=== PATIENT | female | born 1985 | race African-American/Black ===

== ENCOUNTER 2017-12-30 00:42 | Inpatient (IN) ==
[2017-12-30] MEDS ORDERED: PANTOPRAZOLE 40 MG VIAL IV STA (01:17)
[2017-12-30] MEDS ORDERED: SODIUM CHLORIDE 0.9% 1,000 ML IV STA (01:17)
[2017-12-30] MEDS ORDERED: ONDANSETRON 4 MG/2 ML VIAL IV STA ×2 (01:17→03:00)
[2017-12-30] MEDS ORDERED: DICYCLOMINE 20 MG/2 ML AMP IM ONE (01:17)
[2017-12-30] MEDS ORDERED: ONDANSETRON 4 MG/2 ML VIAL ONE ×3 (01:26→14:03)
[2017-12-30] MEDS ORDERED: PANTOPRAZOLE 40 MG VIAL IV ONE (01:26)
[2017-12-30 02:00] LABS: Basophils % 0.2 % (0.0-0.8); Eosinophils # 0.3 10*3/uL (0.0-0.87); Eosinophils % 1.6 % (0.00-10.9); Hematocrit 36.3 VOL% (35.7-47.0); Hemoglobin 11.7 GM/DL (12.0-16.0); Immature Granulocytes % 0.5 %; Immature Granulocytes Absolute 0.08 #; Lymphocytes % 12.3 % (21.3-54.2); Mean Corpuscular HGB Conc 32.2 GM/DL (32-36); Mean Corpuscular Hemoglobin 29 PG (27-34); Mean Corpuscular Volume 90.5 FL (87-102); Mean Platelet Volume 10.9 FL (9.6-12.0); Monocytes # 0.5 10*3/uL (0.11-0.8); Monocytes % 3.3 % (1.7-12.7); Neutrophils # 13.6 10*3/uL (1.4-7.4); Neutrophils % 82.1 % (38.7-73.9); Platelet Count 233 T/CUMM (130-400); Red Blood Count 4.01 MC/CUMM (3.8-5.5); Red Cell Distribution Width 13.5 % (9.3-17.3); White Blood Count 16.5 T/CUMM (4-12)
[2017-12-30 02:10] LABS: Apearance,Urine CLOUDY (Clear); Bacteria,Urine Moderate /HPF (Few); Bilirubin,Urine Negative (Negative); Blood, Urine Negative (Negative); Glucose,Urine (UA) Negative (Negative); Ketones,Urine 5 mg/dL (Negative); Mucus,Urine Few /LPF (Occasional); Nitrite,Urine Negative (Negative); PT Patient Result 10.2 SECS; Partial Thromboplastin Time 24.8 SECS (0-40); Protein,Urine 100 MG/DL; RBC,Urine 17 /HPF (0-4); Squamous Epithelial Cell,Urine Occasional /HPF (0-10); Urine Color Yellow (Yellow); Urine Urobilinogen < 2.0 EU/DL (0.2-1.0); WBC,Urine 135 /HPF (0-6)
[2017-12-30] MEDS ORDERED: cefTRIAXone 1,000 MG in SODIUM CHLORIDE 0.9% 100 ML IV STA (02:18)
[2017-12-30 02:20] LABS: Alanine Aminotransferase 20 U/L (13-56); Albumin 3.6 G/DL (3.4-5.0); Alkaline Phosphatase 54 U/L (45-117); Amylase 83 U/L (25-115); Aspartate Amino Transferase 16 U/L (0-37); Bilirubin,Total < 0.39 MG/DL (0.2-1.0); Blood Urea Nitrogen 10 MG/DL (7-18); Calcium 8.9 MG/DL (8.5-10.1); Glucose 85 MG/DL (74-106); Osmolality,Calculated 272.7 MOS/KG (273-304); Potassium 3.5 MMOL/L (3.5-5.1); Sodium 138 MMOL/L (136-145); Total Protein 8.2 G/DL (6.4-8.3)
[2017-12-30] MEDS ORDERED: cefTRIAXone 1,000 MG VIAL ONE (02:39)
[2017-12-30] MEDS ORDERED: MEPERIDINE 25 MG/1 ML VIAL ONE ×2 (02:58→14:03)
[2017-12-30] MEDS ORDERED: MEPERIDINE 25 MG/1 ML VIAL IV STA (03:00)
[2017-12-30] MEDS ORDERED: ACETAMINOPHEN 325 MG TABLET PO PRN (04:18)
[2017-12-30] MEDS: LACTATED RINGERS 1,000 ML IV SCH ×2 (05:21→18:10)
[2017-12-30] MEDS: ceFAZolin 2,000 MG in PREMIX 1 EACH IV SCH ×2 (06:25→12:15)
[2017-12-30] MEDS ORDERED: cefOXitin 2,000 MG in SYRINGE 1 EACH IV ONE (08:42)
[2017-12-30] MEDS: MEPERIDINE 50 MG/1 ML VIAL IV SCH ×3 (11:23→17:41)
[2017-12-30] MEDS: ONDANSETRON 4 MG/2 ML VIAL IV PRN ×2 (11:28→17:36)
[2017-12-30] MEDS: MULTIVITAMIN (PRENATAL) TABLET PO SCH (11:47)
[2017-12-30] MEDS: FOLIC ACID 1 MG TABLET PO SCH (11:47)
[2017-12-30] MEDS ORDERED: LIDOCAINE 2%/EPI 20 ML VIAL ONE (12:31)
[2017-12-30] MEDS ORDERED: TISSUE ADHESIVE 1 EACH APPLICATOR TOP ONE (13:18)
[2017-12-30] MEDS ORDERED: PROPOFOL 200 MG/20 ML VIAL IV ONE (13:59)
[2017-12-30] MEDS ORDERED: SEVOFLURANE 1 UNIT/15 MINUTE INH ONE (13:59)
[2017-12-30] MEDS ORDERED: fentaNYL 100 MCG/2 ML VIAL ONE (14:00)
[2017-12-30] MEDS ORDERED: ROCURONIUM 100 MG/10 ML VIAL IV ONE (14:00)
[2017-12-30] MEDS ORDERED: MEPERIDINE 25 MG/1 ML VIAL IV PRN (14:09)
[2017-12-30] MEDS ORDERED: ONDANSETRON 4 MG/2 ML VIAL IV PRN (14:09)
[2017-12-30] MEDS: SIMETHICONE CHEW 80 MG TABLET PO PRN ×2 (15:29→21:11)
[2017-12-31] MEDS: LACTATED RINGERS 1,000 ML IV SCH (02:02)
[2017-12-31] MEDS: MEPERIDINE 50 MG/1 ML VIAL IV SCH ×2 (02:33→06:44)
[2017-12-31] MEDS: SIMETHICONE CHEW 80 MG TABLET PO PRN ×2 (03:52→19:41)
[2017-12-31 06:36] LABS: Basophils % 0.2 % (0.0-0.8); Eosinophils # 0.1 10*3/uL (0.0-0.87); Hematocrit 27.8 VOL% (35.7-47.0); Immature Granulocytes % 0.4 %; Immature Granulocytes Absolute 0.02 #; Lymphocytes # 1.3 10*3/uL (1.4-4.0); Lymphocytes % 24.6 % (21.3-54.2); Mean Corpuscular HGB Conc 32.4 GM/DL (32-36); Mean Corpuscular Hemoglobin 29 PG (27-34); Mean Corpuscular Volume 90.3 FL (87-102); Mean Platelet Volume 11.1 FL (9.6-12.0); Monocytes # 0.5 10*3/uL (0.11-0.8); Monocytes % 8.8 % (1.7-12.7); Neutrophils # 3.4 10*3/uL (1.4-7.4); Platelet Count 174 T/CUMM (130-400); Red Blood Count 3.08 MC/CUMM (3.8-5.5); Red Cell Distribution Width 13.2 % (9.3-17.3); White Blood Count 5.2 T/CUMM (4-12)
[2017-12-31 07:08] LABS: Alanine Aminotransferase 25 U/L (13-56); Albumin 2.5 G/DL (3.4-5.0); Alkaline Phosphatase 40 U/L (45-117); Aspartate Amino Transferase 25 U/L (0-37); Bilirubin,Total < 0.39 MG/DL (0.2-1.0); Blood Urea Nitrogen 4 MG/DL (7-18); Calcium 7.9 MG/DL (8.5-10.1); Glucose 77 MG/DL (74-106); Osmolality,Calculated 270.7 MOS/KG (273-304); Potassium 3.2 MMOL/L (3.5-5.1); Sodium 138 MMOL/L (136-145); Total Protein 5.7 G/DL (6.4-8.3)
[2017-12-31] MEDS: MULTIVITAMIN (PRENATAL) TABLET PO SCH (09:26)
[2017-12-31] MEDS: FOLIC ACID 1 MG TABLET PO SCH (09:26)
[2017-12-31] MEDS: MAGNESIUM HYDROXIDE SUSP 30 ML UDCUP PO PRN ×2 (10:13→20:58)
[2017-12-31 12:16] LABS: Hematocrit 27.7 VOL% (35.7-47.0); Hemoglobin 9.1 GM/DL (12.0-16.0)
[2017-12-31] MEDS: POTASSIUM CHLORIDE INJ 20 MEQ in LACTATED RINGERS 1,000 ML IV SCH ×2 (13:01→21:01)
[2017-12-31] MEDS ORDERED: MEPERIDINE 50 MG/1 ML VIAL IV PRN (18:59)
[2017-12-31] MEDS: POTASSIUM CHLORIDE 20 MEQ TABLET PO SCH (20:58)
[2017-12-31] MEDS ORDERED: BISACODYL 10 MG SUPP RECTAL PRN (21:52)
[2018-01-01] MEDS: SIMETHICONE CHEW 80 MG TABLET PO PRN (04:02)
[2018-01-01] MEDS: POTASSIUM CHLORIDE INJ 20 MEQ in LACTATED RINGERS 1,000 ML IV SCH (05:00)
[2018-01-01] MEDS: POTASSIUM CHLORIDE 20 MEQ TABLET PO SCH (07:50)
[2018-01-01 07:56] VITALS: BP 109/63
[2018-01-01] MEDS: FOLIC ACID 1 MG TABLET PO SCH (08:24)
[2018-01-01] MEDS: MULTIVITAMIN (PRENATAL) TABLET PO SCH (08:25)
[2018-01-01] MEDS ORDERED: INFLUENZA VIRUS VACCINE 0.5 ML SYRINGE IM ONE (11:36)
== END 2018-01-01 11:35 | disposition home or self-care (01) | DRG 951 ==
LOC: N.ED 00:42 → N.EDINP 03:15 → N.OB 03:55
PROVIDERS: ADMIT Obstetrics & Gynecology; ATTEND Obstetrics & Gynecology
PROC: LAPCHOL (2017-12-30 12:15)

== ENCOUNTER 2018-05-12 01:34 | Inpatient (IN) ==
[2018-05-12] MEDS ORDERED: CITRIC ACID/SODIUM CITRATE 30 ML UDCUP PO PRN (02:20)
[2018-05-12] MEDS ORDERED: FAMOTIDINE 20 MG/2 ML VIAL IV PRN (02:20)
[2018-05-12] MEDS ORDERED: ONDANSETRON 4 MG/2 ML VIAL IV PRN ×2 (02:24→09:51)
[2018-05-12] MEDS ORDERED: BUTORPHANOL 2 MG/ML VIAL IV PRN (02:24)
[2018-05-12] MEDS ORDERED: AMPICILLIN INJ 2,000 MG in SODIUM CHLORIDE 0.9% 100 ML IV ONE (02:24)
[2018-05-12] MEDS ORDERED: OXYTOCIN/LR 30 UNIT/1,000 ML BAG IV PRN (02:24)
[2018-05-12] MEDS ORDERED: BETAMETH SODIUM PHOS/ACETATE 30 MG/5 ML VIAL IM SCH (02:30)
[2018-05-12] MEDS ORDERED: AMPICILLIN 2,000 MG VIAL ONE (02:36)
[2018-05-12] MEDS ORDERED: SODIUM CHLORIDE 0.9% 100 ML IV ONE (02:37)
[2018-05-12] MEDS: TERBUTALINE 1 MG/1 ML VIAL SUBCUT PRN ×2 (02:46→05:05)
[2018-05-12] MEDS: LACTATED RINGERS 1,000 ML IV SCH ×3 (02:50→18:51)
[2018-05-12 02:51] LABS: Basophils % 0.2 % (0.0-0.8); Eosinophils # 0.1 10*3/uL (0.0-0.87); Eosinophils % 1.1 % (0.00-10.9); Hematocrit 24.2 VOL% (35.7-47.0); Hemoglobin 7.6 GM/DL (12.0-16.0); Immature Granulocytes Absolute 0.09 #; Lymphocytes # 2.5 10*3/uL (1.4-4.0); Lymphocytes % 27.5 % (21.3-54.2); Mean Corpuscular HGB Conc 31.4 GM/DL (32-36); Mean Corpuscular Hemoglobin 29 PG (27-34); Mean Platelet Volume 12.7 FL (9.6-12.0); Monocytes # 0.7 10*3/uL (0.11-0.8); Monocytes % 7.5 % (1.7-12.7); Neutrophils # 5.6 10*3/uL (1.4-7.4); Neutrophils % 62.7 % (38.7-73.9); Platelet Count 127 T/CUMM (130-400); Red Blood Count 2.66 MC/CUMM (3.8-5.5)
[2018-05-12 03:06] LABS: Alanine Aminotransferase 10 U/L (13-56); Albumin 2.3 G/DL (3.4-5.0); Alkaline Phosphatase 130 U/L (45-117); Aspartate Amino Transferase 16 U/L (0-37); Bilirubin,Total < 0.39 MG/DL (0.2-1.0); Blood Urea Nitrogen 7 MG/DL (7-18); Calcium 8.6 MG/DL (8.5-10.1); Glucose 80 MG/DL (74-106); Osmolality,Calculated 277.3 MOS/KG (273-304); Potassium 3.8 MMOL/L (3.5-5.1); Sodium 141 MMOL/L (136-145); Total Protein 7.1 G/DL (6.4-8.3)
[2018-05-12 03:07] LABS: Apearance,Urine CLEAR (Clear); Bilirubin,Urine Negative (Negative); Blood, Urine Negative (Negative); Glucose,Urine (UA) Negative (Negative); Ketones,Urine Negative (Negative); Mucus,Urine Occasional /LPF (Occasional); Nitrite,Urine Negative (Negative); Protein,Urine Negative; RBC,Urine 1 /HPF (0-4); Urine Color Straw (Yellow); Urine Specific Gravity 1.003 (1.001-1.035); Urine Urobilinogen < 2.0 EU/DL (0.2-1.0); WBC,Urine 3 /HPF (0-6)
[2018-05-12] MEDS ORDERED: SODIUM CHLORIDE 0.9% 1,000 ML IV PRN (05:17)
[2018-05-12] MEDS ORDERED: ceFAZolin 2,000 MG in PREMIX 1 EACH IV PRN (06:00)
[2018-05-12] MEDS ORDERED: BUPIVACAINE SPINAL 0.75% 2 ML AMP SPINAL ONE (06:41)
[2018-05-12] MEDS ORDERED: OXYTOCIN 10 UNIT/ML VIAL IM ONE (08:20)
[2018-05-12 09:11] LABS: Cord Arterial Blood HCO3 19.2 MMOL/L
[2018-05-12 09:12] LABS: Cord Venous Blood HCO3 21.1 MMOL/L; Cord Venous Blood PCO2 45.9 MMHG; Cord Venous Blood PO2 39.5 MMHG
[2018-05-12 09:15] LABS: Cord Arterial Blood HCO3 19.4 MMOL/L; Cord Venous Blood HCO3 22.1 MMOL/L; Cord Venous Blood PO2 40.9 MMHG
[2018-05-12] MEDS ORDERED: NALOXONE 0.4 MG/ML VIAL IV PRN (09:50)
[2018-05-12] MEDS ORDERED: ACETAMINOPHEN 325 MG TABLET PO PRN (09:51)
[2018-05-12] MEDS ORDERED: RHO(D) IMMUNE GLOBULIN 300 MCG SYRINGE IM ONE (09:51)
[2018-05-12] MEDS ORDERED: OXYTOCIN/LR 20 UNIT/1,000 ML BAG IV ONE (09:51)
[2018-05-12] MEDS ORDERED: MORPHINE PCA 30 MG/30 ML SYRINGE IV SCH (10:00)
[2018-05-12] MEDS ORDERED: fentaNYL 100 MCG/2 ML VIAL ONE (11:18)
[2018-05-12] MEDS ORDERED: MORPHINE 10 MG/10 ML VIAL ONE (11:19)
[2018-05-12] MEDS ORDERED: ACETAMINOPHEN 1,000 MG/100 ML VIAL IV ONE (11:54)
[2018-05-12] MEDS ORDERED: SUCCINYLCHOLINE 200 MG/10 ML VIAL ONE (11:54)
[2018-05-12] MEDS ORDERED: ACETAMINOPHEN INJ 1,000 MG in PREMIX 1 EACH IV ONE (12:06)
[2018-05-12] MEDS: ceFAZolin 1,000 MG in SYRINGE 1 EACH IV SCH (15:45)
[2018-05-12 17:21] LABS: Basophils % 0.1 % (0.0-0.8); Hematocrit 29.8 VOL% (35.7-47.0); Hemoglobin 9.5 GM/DL (12.0-16.0); Immature Granulocytes % 0.8 %; Immature Granulocytes Absolute 0.17 #; Lymphocytes # 1.9 10*3/uL (1.4-4.0); Lymphocytes % 8.7 % (21.3-54.2); Mean Corpuscular HGB Conc 31.9 GM/DL (32-36); Mean Corpuscular Hemoglobin 29 PG (27-34); Mean Platelet Volume 12.9 FL (9.6-12.0); Monocytes # 1.5 10*3/uL (0.11-0.8); Monocytes % 6.9 % (1.7-12.7); Neutrophils # 18.5 10*3/uL (1.4-7.4); Neutrophils % 83.5 % (38.7-73.9); Platelet Count 110 T/CUMM (130-400); Red Blood Count 3.31 MC/CUMM (3.8-5.5); Red Cell Distribution Width 13.7 % (9.3-17.3); White Blood Count 22.2 T/CUMM (4-12)
[2018-05-12 17:49] LABS: Lymphocytes 13 % (20-55); Segmented Neutrophils 87 % (50-85)
[2018-05-12 17:50] LABS: Anisocytosis 1+; Elliptocytes Few; Microcytosis 1+; Platelet Estimate Decreased; Polychromasia Few
[2018-05-12 17:51] LABS: Total Cells Counted 100
[2018-05-12] MEDS: DOCUSATE SODIUM 100 MG CAPSULE PO SCH (20:19)
[2018-05-13] MEDS: ceFAZolin 1,000 MG in SYRINGE 1 EACH IV SCH (00:18)
[2018-05-13] MEDS: LACTATED RINGERS 1,000 ML IV SCH (02:30)
[2018-05-13 05:12] LABS: Basophils % 0.1 % (0.0-0.8); Hematocrit 28.5 VOL% (35.7-47.0); Immature Granulocytes % 1.4 %; Immature Granulocytes Absolute 0.28 #; Lymphocytes # 2.2 10*3/uL (1.4-4.0); Lymphocytes % 10.4 % (21.3-54.2); Mean Corpuscular HGB Conc 31.6 GM/DL (32-36); Mean Corpuscular Hemoglobin 28 PG (27-34); Mean Corpuscular Volume 89.6 FL (87-102); Mean Platelet Volume 12.8 FL (9.6-12.0); Monocytes # 1.2 10*3/uL (0.11-0.8); Neutrophils % 82.1 % (38.7-73.9); Platelet Count 109 T/CUMM (130-400); Red Blood Count 3.18 MC/CUMM (3.8-5.5); Red Cell Distribution Width 13.8 % (9.3-17.3); White Blood Count 20.6 T/CUMM (4-12)
[2018-05-13 06:33] LABS: Band Neutrophils 3 % (0-10); Lymphocytes 5 % (20-55); Platelet Estimate Adequate; Segmented Neutrophils 89 % (50-85); Total Cells Counted 100
[2018-05-13] MEDS: MULTIVITAMIN (PRENATAL) TABLET PO SCH (09:10)
[2018-05-13] MEDS: DOCUSATE SODIUM 100 MG CAPSULE PO SCH ×3 (09:10→22:46)
[2018-05-13] MEDS: SIMETHICONE CHEW 80 MG TABLET PO PRN ×2 (09:10→16:00)
[2018-05-13] MEDS: MAGNESIUM HYDROXIDE SUSP 30 ML UDCUP PO PRN (09:10)
[2018-05-13] MEDS: IBUPROFEN 800 MG TABLET PO PRN (11:34)
[2018-05-14] MEDS: IBUPROFEN 800 MG TABLET PO PRN (07:58)
[2018-05-14] MEDS: MULTIVITAMIN (PRENATAL) TABLET PO SCH (08:24)
[2018-05-14] MEDS: SIMETHICONE CHEW 80 MG TABLET PO PRN (08:24)
[2018-05-14] MEDS: DOCUSATE SODIUM 100 MG CAPSULE PO SCH (08:24)
[2018-05-14] MEDS: MAGNESIUM HYDROXIDE SUSP 30 ML UDCUP PO PRN (08:24)
[2018-05-14] MEDS ORDERED: DIPH/TET/ACEL PERT BOOSTER VACCINE 0.5 ML VIAL IM ONE (16:18)
[2018-05-14 16:57] VITALS: BP 130/72
== END 2018-05-14 17:00 | disposition home or self-care (01) | DRG 540 ==
LOC: N.LDOUT 01:34 → N.LD 01:35 → N.OB 12:42
PROVIDERS: ADMIT Obstetrics & Gynecology; ATTEND Obstetrics & Gynecology